=== PATIENT | female | born 1995 | race Two or more races ===

== ENCOUNTER 2016-11-21 | Emergency (ER) | payer MEDICAID | END 2016-11-21 14:43 | disposition home or self-care (01) ==

== ENCOUNTER 2017-05-16 15:49 | Emergency (ER) | payer MEDICAID ==
[2017-05-16 15:56] VITALS: BP 125/80
[2017-05-16 16:11] LABS: RAPID STREP SCREEN REAGENT QC YELLOW (YELLOW)
[2017-05-16] MEDS ORDERED: IBUPROFEN 800 MG TABLET PO STA (17:37)
--- NOTE | 2017-05-16 17:40 | ED Physician Documentation ---
PD HPI HEENT - Stated complaint Stated Complaint: THROAT PX - Chief complaint Chief Complaint: Heent - History obtained from History obtained from: Patient - History of Present Illness Timing - onset: Yesterday Location: Throat Associated symptoms: Fever, Headache Similar symptoms before: Has not had sx before - Additional information Additional information: The patient is a 22-year-old female who presents with sore throat that started yesterday. She also reports myalgias, headache, and fever yesterday. She denies cough, nausea or vomiting. She denies history of similar symptoms in the past. Review of Systems Constitutional: reports: Fever, Myalgias Eyes: denies: Irritation Ears: denies: Ear pain Nose: denies: Congestion Throat: reports: Sore throat Cardiac: denies: Chest pain / pressure Respiratory: denies: Dyspnea, Cough GI: denies: Abdominal Pain, Nausea, Vomiting : denies: Dysuria Skin: denies: Rash Musculoskeletal: denies: Back pain Neurologic: reports: Headache. denies: Focal weakness, Numbness PD PAST MEDICAL HISTORY - Past Medical History Cardiovascular: None Respiratory: None Neuro: None Endocrine/Autoimmune: None : Other - Past Surgical History Past Surgical History: No - Present Medications Home Medications: Ambulatory Orders Medication Instructions Recorded Confirmed Penicillin V Potassium 500 mg PO QID #40 tablet 05/16/17 - Allergies Allergies/Adverse Reactions: Allergies Allergy/AdvReac Type Severity Reaction Status Date / Time No Known Drug Allergies Allergy Verified 05/16/17 15:56 - Social History Does the pt smoke?: No Smoking Status: Never smoker Does the pt drink ETOH?: No Does the pt have substance abuse?: No - Immunizations Immunizations are current?: Yes - POLST Patient has POLST: No PD ED PE NORMAL - Vitals Vital signs reviewed: Yes (normal) - General General: Alert and oriented X 3, Well developed/nourished - HEENT HEENT: EOMI, Ears normal, Other (Oropharynx is erythematous with exudates bilaterally.) - Neck Neck: Supple, no meningeal sign, Other (Mildly enlarged anterior cervical nodes bilaterally.) - Cardiac Cardiac: RRR, No murmur - Respiratory Respiratory: No respiratory distress, Clear bilaterally - Abdomen Abdomen: Soft, Non tender, No organomegaly - Back Back: No CVA TTP - Derm Derm: No rash - Extremities Extremities: No edema, No calf tenderness / cord - Neuro Neuro: Alert and oriented X 3, No motor deficit, Normal speech Results - Vitals Vitals: Oxygen O2 Source Room air - Labs Labs: Laboratory Tests 05/16/17 15:57 Group A Strep Rapid POSITIVE H PD MEDICAL DECISION MAKING - ED course Complexity details: reviewed results, considered differential, d/w patient ED course: The patient's presentation is significant for streptococcal pharyngitis, which is confirmed by rapid strep test. There is no clinical evidence to suggest peritonsillar abscess. Treatment in the emergency department included administration of ibuprofen 800 mg orally. She is being discharged with a prescription for penicillin. I discussed with her the expected course of illness , antibiotic treatment and outpatient follow-up, as well as potentially worrisome signs or symptoms that should prompt reevaluation in the emergency department. Departure - Departure Disposition: 01 Home, Self Care Clinical Impression: Strep pharyngitis Condition: Stable Instructions: ED Strep Pharyngitis Conf Follow-Up: Ana María Rivera ARNP [Primary Care Provider] - Prescriptions: Penicillin V Potassium 500 mg PO QID #40 tablet Comments: Gargle with cool liquids. Take penicillin 4 times daily as prescribed. You can use Tylenol or ibuprofen if needed for fever or discomfort. Follow-up with your primary physician within 2 weeks. Call to schedule an appointment. Return to the emergency department if you develop increasing difficulty swallowing, or otherwise worsening symptoms. Discharge Date/Time: 05/16/17 17:46
[2017-05-16] MEDS ORDERED: IBUPROFEN 600 MG TABLET PO ONE (17:41)
[2017-05-16] MEDS ORDERED: IBUPROFEN 800 MG TABLET PO ONE (17:43)
== END 2017-05-16 17:46 | disposition home or self-care (01) ==
LOC: ED 15:49
DX: J02.0 Streptococcal pharyngitis (principal)
CPT/HCPCS: 87430; 99283; A9270

== ENCOUNTER 2022-02-02 18:32 | Outpatient (CLI) | payer MEDICAID ==
--- NOTE | 2022-02-02 19:50 | Ultrasound Report ---
PROCEDURE: OB F/U or Repeat INDICATIONS: GESTATIONAL DIABETES OUTSIDE/PRIOR DATING DATA: Last menstrual period (LMP): Unknown. LMP-based estimated date of delivery (ANDRES): Unknown. First dating scan (date and location): 10/25/2021. Estimated date of delivery (ANDRES) from first dating scan: 03/01/2022. The below data below was generated using the study generated ANDRES of 03/01/2022 TECHNIQUE: Real-time scanning was performed of the fetus, with image documentation and biometric measurements. Endovaginal scanning: Not indicated COMPARISON: Study performed at [facility] dated 10/25/2021. FINDINGS: General: A single living intrauterine gestation is present. Presentation: Vertex Placenta: Placental position is anterior, without previa. Amniotic fluid index: 13.5 cm, normal for gestational age. heart rate: 167 beats per minute. Maternal cervical length: not evaluated biometrics: Biparietal diameter: 8.6 cm, 34 weeks, 5 days Head circumference: 33.6 cm, 38 weeks, 3 days Abdominal circumference: 31.8 cm, 35 weeks, 5 days Femur length: 6.6 cm, 33 weeks, 6 days. Estimated gestational age from initial scan: 36 weeks, 1 day Composite gestational age from present scan: 35 weeks, 5 days Estimated weight and percentile: 2667.7 g, 31.3%. Measurement variability in biometric dating: +/- 10 days from 12-20 weeks gestation, +/- 2 weeks from 20-30 weeks gestation, +/- 3 weeks at 30 weeks gestation or more. Other: Not applicable. IMPRESSION: 1. Single live intrauterine gestation with fetus in vertex presentation. heart rate is 167 bpm. Normal amount of amniotic fluid. SHERRIE equals 13.5 cm. 2. Normal growth. Estimated weight is at 31.3%. Reviewed by: Ambrose Garcia MD on 02/02/2022 7:48 PM PDT Approved by: Ambrose Garcia MD on 02/02/2022 7:48 PM PDT Station ID: [id number]
== END 2022-02-02 18:33 | disposition home or self-care (01) ==
LOC: DI 18:32
PROVIDERS: ATTEND Family Medicine
DX: O24.419 Gestational diabetes mellitus in pregnancy, unspecified control (principal); Z3A.35 35 weeks gestation of pregnancy